=== PATIENT | male | born 1965 | race Caucasian/White ===

== ENCOUNTER 2021-09-17 12:12 | Emergency (ER) | payer MEDICAID ==
[~2021-09-17] VITALS: Ht 182.9 cm; Wt 100.0 kg
[2021-09-17 13:45] LABS: ALANINE AMINOTRANSFERASE 20 U/L (12-78); ALBUMIN/GLOBULIN RATIO 1.1 (1.1-1.5); ALKALINE PHOSPHATASE 75 IU/L (46-116); ANION GAP 10 (8-16); ASPARTATE AMINO TRANSFERASE 22 U/L (10-37); BILIRUBIN,TOTAL 0.9 MG/DL (0.1-1.0); BLOOD UREA NITROGEN 15 MG/DL (7-18); CALCIUM 8.7 MG/DL (8.5-10.1); CHLORIDE 107 MMOL/L (99-107); GLUCOSE 86 MG/DL (70-104); POTASSIUM 4.2 MMOL/L (3.5-5.1); SODIUM 144 MMOL/L (135-145); TOTAL CARBON DIOXIDE 26.6 MMOL/L (24-32); TOTAL PROTEIN 7.7 G/DL (6.4-8.2); eGFR 77 ML/MIN
[2021-09-17] MEDS ORDERED: BENZ-38 PO (13:57)
[2021-09-17] MEDS ORDERED: SOTROVIMAB 500 MG in NS 100ml IV soln IV ONE (15:00)
--- NOTE | 2021-09-17 16:20 | NUR ---
PT HAS READ FACT SHEET ON MEDICATION SOTROVIMAB AND HAS NO QUESTIONS
[2021-09-17 17:56] VITALS: BP 164/92
== END 2021-09-17 17:57 | disposition home or self-care (01) ==
LOC: ER 12:15
DX: U07.1 COVID-19 (principal); R05.9 Cough, unspecified; I10 Essential (primary) hypertension; M19.90 Unspecified osteoarthritis, unspecified site; Z79.899 Other long term (current) drug therapy
CPT/HCPCS: 36415; 80053; 99284; J3490; M0247; Q0247; 96365; 96366

== ENCOUNTER 2023-12-26 05:45 | Day surgery (SDC) | payer MEDICAID ==
[2023-12-18 11:47] LABS: BASOPHILS % (AUTO) 0.4 % (0-1); EOSINOPHILS # (AUTO) 0.5 X10'3 (0-0.9); LYMPHOCYTES # (AUTO) 1.2 X10'3 (1.1-4.8); LYMPHOCYTES % (AUTO) 20.9 % (21-51); MEAN CORPUSCULAR HEMOGLOBIN 28.7 PG (27.0-31.0); MEAN CORPUSCULAR VOLUME 86.9 FL (78-98); MEAN PLATELET VOLUME 8.6 FL (7.4-10.4); MONOCYTES # (AUTO) 0.6 X10'3 (0-0.9); MONOCYTES % (AUTO) 9.5 % (2-12); NEUTROPHILS # (AUTO) 3.6 X10'3 (1.8-7.7); NEUTROPHILS % (AUTO) 61.2 % (42-75); PRE OP HEMATOCRIT 48.5 % (42.0-52.0); PRE OP PLATELET COUNT 161 X10'3 (140-440); PRE OP WHITE BLOOD COUNT 5.9 10'3 (4.8-10.8); RED BLOOD COUNT 5.58 X10'6 (4.70-6.10); RED CELL DISTRIBUTION WIDTH 13.9 % (11.5-14.5)
[2023-12-18 11:48] LABS: BILIRUBIN,URINE NEGATIVE (Neg); CLARITY,URINE CLEAR (Clear); COLOR,URINE YELLOW (Yellow); GLUCOSE, URINE NEGATIVE (Neg); KETONES,URINE NEGATIVE (Neg); LEUKOCYTE ESTERASE ,URINE NEGATIVE (Neg); NITRITES, URINE NEGATIVE (Neg); OCCULT BLOOD,URINE NEGATIVE (Neg); PH,URINE 5.5 (4.8-8.0); PROTEIN,URINE NEGATIVE (Neg); UROBILINOGEN,URINE 0.2 E.U/dL (0.2-1.0)
[2023-12-18 11:53] LABS: UA COLLECTION TYPE CLN CATCH MIDSTREAM
[2023-12-18 12:01] LABS: ALBUMIN 3.8 G/DL (3.4-5.0); ALBUMIN/GLOBULIN RATIO 1.2 (1.1-1.5); ALKALINE PHOSPHATASE 79 IU/L (46-116); BLOOD UREA NITROGEN 18 MG/DL (7-18); BUN/CREATININE RATIO 17.1 (10.0-20.0); CALCIUM 8.8 MG/DL (8.5-10.1); CHLORIDE 106 MMOL/L (99-107); CREATININE 1.05 MG/DL (0.60-1.10); PRE OP ALT 25 U/L (30-65); PRE OP ANION GAP 10 (8-16); PRE OP AST 16 U/L (10-37); PRE OP BILIRUB, TOTAL 0.3 MG/DL (0.0-1.0); PRE OP GLUCOSE 106 MG/DL (70-104); PRE OP POTASSIUM 4.6 MMOL/L (3.4-5.1); PRE OP SODIUM 142 MMOL/L (135-145); TOTAL CARBON DIOXIDE 26.5 MMOL/L (24-32); eGFR 72 ML/MIN
[~2023-12-26] VITALS: Ht 182.9 cm; Wt 104.4 kg
[2023-12-26] VITALS (10 sets, daily range): BP systolic 106–126; BP diastolic 75–85; PULSE 57–69; RESP 11–16; TEMP 97.1; O2SAT 97–100
[~2023-12-26 05:45] MED LIST: AMLO10TA13 PO; ANAS1TAB10 PO; BUPR-317 PO; CHOL20003 PO; CYCL10TA25 PO; DOXE10CA3 PO; LIDOCAINE PATCH 5% TOP; LISI20TA28 PO; MELO-100 PO; SILD50TA53 PO; TEST200V33 IM
[2023-12-26] MEDS: famotidine 20mg tablet PO ONE (06:28)
[2023-12-26] MEDS: cefazolin 2gm/D5W 100mL 100 ML IV ONE (06:29)
[2023-12-26] MEDS: ringers solution, lacted 1,000 ML IV SCH (06:29)
[2023-12-26] MEDS ORDERED: sevoflurane 250ml liquid IH ONE (07:19)
[2023-12-26] MEDS ORDERED: morphine 2 MG/ML inj. syringe IV PRN (07:20)
[2023-12-26] MEDS ORDERED: fentaNYL/PF 50MCG/1 ML 2ML syringe IV PRN ×2 (07:20)
[2023-12-26] MEDS ORDERED: ondansetron/PF 4mg/2ml inj IV PRN (07:20)
[2023-12-26] MEDS ORDERED: hydrALAZINE 20mg/ml inj. IV PRN (07:20)
[2023-12-26] MEDS ORDERED: labetalol 20mg/4ml (5mg/ml) syringe IV PRN (07:20)
[2023-12-26] MEDS ORDERED: morphine 4 MG/ML inj SYRINge IV PRN (07:20)
[2023-12-26] MEDS ORDERED: ringers solution, lacted 1,000 ML IV SCH (07:20)
[2023-12-26] MEDS ORDERED: fentaNYL/PF 50MCG/1 ML 2ML syringe ONE (07:23)
[2023-12-26] MEDS ORDERED: MIDAZolam 1 MG/ML 5ML VIAL ONE (07:24)
[2023-12-26] MEDS ORDERED: acetaminophen 1,000mg/100ml IV 100 ML IV ONE (07:27)
[2023-12-26] MEDS ORDERED: acetaminophen 1,000mg/100ml IV 0 ML IV ONE (07:27)
[2023-12-26] MEDS ORDERED: propofol inj 20 ML IV ONE (07:28)
[2023-12-26] MEDS ORDERED: LIDOcaine 2% (20mg/ml) 5ml vial ONE (07:29)
[2023-12-26] MEDS ORDERED: dexamethasone sod phosphate 4mg/ml inj. ONE (07:32)
[2023-12-26] MEDS ORDERED: ondansetron/PF 4mg/2ml inj ONE (07:32)
[2023-12-26] MEDS: bacitracin 15gm ointment TP ONE (07:41)
[2023-12-26] MEDS: BUPIVAcaine/PF 2.5mg/ml (0.25%) 10ml vial ONE (07:43)
== END 2023-12-26 09:20 | disposition home or self-care (01) ==
LOC: PAS 05:45
PROVIDERS: ATTEND Podiatrist Foot & Ankle Surgery
DX: D36.13 Benign neoplasm of peripheral nerves and autonomic nervous system of lower limb, including hip (principal); M21.6X2 Other acquired deformities of left foot; I10 Essential (primary) hypertension; F41.8 Other specified anxiety disorders; M17.0 Bilateral primary osteoarthritis of knee; Z79.899 Other long term (current) drug therapy
CPT/HCPCS: 36415; 64782; 80053; 81003; 82948; 85025; A6223; J0131; J0690; J1100; J2250; J2405; J2704; J3010; J3490; J7030; J7120; Z7506; Z7512; A4215; A4618; A6449; A7000

== ENCOUNTER 2024-03-21 11:09 | Emergency (ER) | payer MEDICAID ==
[~2024-03-21] VITALS: Ht 182.9 cm; Wt 95.0 kg
[~2024-03-21 11:09] MED LIST changes: -BUPR-317 PO; +BUPR-561 PO
[2024-03-21 11:56] LABS: BASOPHILS % (AUTO) 0.2 % (0-1); EOSINOPHILS # (AUTO) 0.1 X10'3 (0-0.9); EOSINOPHILS % (AUTO) 1.5 % (0-6); LYMPHOCYTES # (AUTO) 1.2 X10'3 (1.1-4.8); LYMPHOCYTES % (AUTO) 13.7 % (21-51); MEAN CORPUSCULAR HEMOGLOBIN 28.9 PG (27.0-31.0); MEAN CORPUSCULAR HGB CONC 32.7 g/dL (33.0-36.5); MEAN CORPUSCULAR VOLUME 88.4 FL (78-98); MEAN PLATELET VOLUME 8.4 FL (7.4-10.4); MONOCYTES # (AUTO) 0.6 X10'3 (0-0.9); MONOCYTES % (AUTO) 7.1 % (2-12); NEUTROPHILS # (AUTO) 6.6 X10'3 (1.8-7.7); NEUTROPHILS % (AUTO) 77.5 % (42-75); PLATELET COUNT 190 X10'3 (140-440); RED BLOOD COUNT 6.33 X10'6 (4.70-6.10); RED CELL DISTRIBUTION WIDTH 15.5 % (11.5-14.5); WHITE BLOOD COUNT 8.6 X10'3 (4.5-11.0)
[2024-03-21 11:59] LABS: HEMOGLOBIN 18.3 g/dl (14.0-17.9)
[2024-03-21] MEDS ORDERED: iohexol 350MG/ML 100ml bottle IV ONE (13:09)
[2024-03-21] MEDS: ondansetron/PF 4mg/2ml inj IV ONE (13:40)
[2024-03-21] MEDS: diazepam inj 5 MG/ML inj. IV ONE (13:40)
[2024-03-21] MEDS: normal saline 1000ml 1,000 ML IV ONE ×2 (13:40→14:51)
[2024-03-21 14:30] VITALS: TEMP 99.1
[2024-03-21 15:45] LABS: POTASSIUM 4.1 MMOL/L (3.3-5.1)
[2024-03-21 15:46] LABS: BUN/CREATININE RATIO 8.6 (5.4-32.0); CREATININE 1.05 MG/DL (0.8-1.3)
[2024-03-21 17:00] VITALS: BP 144/97; PULSE 59; RESP 18; O2SAT 97
[2024-03-21] MEDS ORDERED: ONDA-243 PO (17:40)
[2024-03-21] MEDS ORDERED: DIAZ-351 PO (17:40)
== END 2024-03-21 17:59 | disposition home or self-care (01) ==
LOC: ER 11:09
DX: R42 Dizziness and giddiness (principal); E86.0 Dehydration; I10 Essential (primary) hypertension; M19.90 Unspecified osteoarthritis, unspecified site; Z79.899 Other long term (current) drug therapy
CPT/HCPCS: 36415; 70450; 70496; 70498; 80048; 85025; 93005; 96361; 96374; 96375; 99285; J2405; J3360; J7030; Q9967